=== PATIENT | male | born 1945 | race Caucasian/White ===

== ENCOUNTER 2017-02-09 11:35 | Inpatient (IN) | payer OTHER ==
--- NOTE | ~2017-02-09 | DS ---
Discharge Summary [facility] [address] [place]. [address] NAME: DAYNE CAMP : 49 STATUS : DIS IN PAT#: [id number] AGE: 71 ADM/REG DATE : 02/09/17 MR#: [id number] REPORT SERV DATE: 02/13/17 DICTATED BY: DANIELLE HOUSE DATE: 02/12/17 REPORT STATUS : Draft TRANSCRIBED BY: MODL DATE: 02/12/17 ADMISSION DATE: 02/09/2017 DISCHARGE DATE: 02/12/2017 DISCHARGE DIAGNOSES: 1. Acute on chronic systolic dysfunction. He was treated with IV Bumex, had a 9000 mL output. 2. Sleep apnea. The patient was noncompliant with CPAP at home. We tried to use our CPAP here and then he was able to use it whole night yesterday, and he is willing to try with his home CPAP. 3. Atrial fibrillation on chronic Pradaxa use. 4. Morbid obesity. BMI 40. 5. Acute kidney injury, chronic kidney disease, improving back to his normal status. 6. Diabetes mellitus uncontrolled, increasing his Lantus to 75 units twice a day from 62 units. HISTORY OF PRESENT ILLNESS: This is a 71-year-old male patient, who is morbidly obese with a multiple medical conditions including heart failure, and morbid obesity and came to the hospital with short of breath and dyspnea. Please see dictated H and P. HOSPITAL COURSE: He was admitted to hospital with heart failure, was treated with IV Bumex. He was already on high dose of oral Bumex and furosemide at home as instruction from Dr. Hilton. Even there with p.r.n. use of Bumex, he was not able to breathe very much, and he was in such a respiratory distress when he came into the hospital emergency room. After the IV Bumex was started, he put out about 9000 mL for last three days and he is improving. He is able to walk without any problem with 2 L of oxygen. His oxygenation is 98%. He has improved. While he was here, we tried to use our CPAP and he tolerated well and he wanted to continue to use his home CPAP at home. We encouraged to use the CPAP as much as he can strongly. He voiced understanding and also voiced understanding. I talked to Dr. Hilton about his medical condition and the current treatment plan and he agreed with that. DISCHARGE MEDICATION: 1. Continue aspirin 81 mg once a day, Lipitor 20 mg once at night, Bumex and furosemide 80 mg once in the morning time which was instruction from Dr. Hilton but I am adding his Bumex 2 mg at 2 o'clock p.m. 2. BuSpar 5 mg twice a day. 3. Atarax 10 mg as needed. 4. Coreg 6.25 mg twice a day. 5. Pradaxa 150 mg twice a day. 6. Neurontin 400 mg twice a day. 7. Lantus was increased to 75 unit twice a day. 8. Potassium 20 mEq once a day. 9. Zoloft 200 mg once a day. 10.Flomax 0.4 mg once a day. Discharge Summary [address] [place]. [address] NAME: DAYNE CAMP : 49 STATUS : DIS IN PAT#: [id number] AGE: 71 ADM/REG DATE : 02/09/17 MR#: [id number] REPORT SERV DATE: 02/13/17 DICTATED BY: DANIELLE HOUSE DATE: 02/12/17 REPORT STATUS : Draft TRANSCRIBED BY: DARLYN DATE: 02/12/17 11.Cozaar was not continued. 12.Ambien 5 or 10 mg once at bedtime as needed. 13.Zantac 150 mg twice a day. 14.Glucophage 1000 mg twice a day. 15.ProAir as needed. 16.Flonase twice a day. 17.Ativan 0.5 twice a day as needed. TIME SPENT: More than 30 minutes in discharge summary and coordination. DISCHARGE DISPOSITION: The patient is discharged to home with home health being resumed, and I highly recommend to use a CPAP machine at home. EKL/MODL Danielle House M.D. / [id number] CC: Deborah Kwong
--- NOTE | ~2017-02-09 | HP ---
History And Physical [facility] [id number] [place]. [address] NAME: DAYNE CAMP : 49 STATUS : ADM IN PAT#: [id number] AGE: 71 ADM/REG DATE : 02/09/17 MR#: [id number] REPORT SERV DATE: 02/09/17 DICTATED BY: DANIELLE HOUSE DATE: 02/09/17 REPORT STATUS : Draft TRANSCRIBED BY: MODL DATE: 02/09/17 DATE OF ADMISSION: 02/09/2017 CHIEF COMPLAINT: Short of breath. HISTORY OF PRESENT ILLNESS: This is a 71-year-old super obese male patient and also has sleep apnea, does not use a CPAP machine, having trouble breathing about worsening a few weeks, came to the hospital because last night he was feeling about to dye. He has all the time some sort of short of breath and he has been treated for congestive heart failure for longer time with Dr. Chauncey Hilton as an outpatient with p.r.n. diuretic use. However, he has been suffering worsening short of breath for the last three to four weeks and has gotten worse for the last few days. Meanwhile, he was followed by the [facility] Dr. Patel and then seen by Dr. Negrete for the pulmonary status and had a pulmonary function test done as an outpatient. He was told that he does not have any obstructive disease, but he does have a decreased TACO which represents some cardiac problem if there is, and also he does have sleep apnea and had it tested twice, but he is not able to use the BiPAP at home, so he is not using it. Dr. Hilton has been increasing diuretics over years and then using the instruction that he can use the extra furosemide on top of his a Bumex and Lasix combination daily dosing, but still his symptoms are not well controlled. Therefore, the patient was given the oxygen 2 weeks ago by primary care physician, and it helped somewhat, but last night he suffered from extreme short of breath and then decided to come to the hospital today. He has no fever, no chills, no cough, and he does not use any walking aids, but he is getting little weaker, so the has to be give him bath for the first time last night. He is compliant with his home medications. He was gained weight, but they believe it is water weight. There is no leg swelling. REVIEW OF SYSTEMS: All systems are reviewed and are negative. PAST MEDICAL HISTORY: 1. Congestive heart failure with systolic dysfunction. Ejection fraction was 40% with very mild nonflow obstructing coronary artery disease. 2. Atrial fibrillation, chronic. 3. Taking chronic Pradaxa. 4. Sleep apnea. The patient is not compliant with BiPAP. 5. Diabetes. PAST SURGICAL HISTORY: 1. UPPP. History And Physical [address] [address] NAME: DAYNE CAMP : 49 STATUS : ADM IN PAT#: [id number] AGE: 71 ADM/REG DATE : 02/09/17 MR#: [id number] REPORT SERV DATE: 02/09/17 DICTATED BY: DANIELLE HOUSE DATE: 02/09/17 REPORT STATUS : Draft TRANSCRIBED BY: DARLYN DATE: 02/09/17 2. Breast and nodular surgery. 3. Back surgery. 4. Thumb surgery two weeks ago. SOCIAL HISTORY: Quit smoking 30 something years ago. Denies any drinking problem. Used to work at [employer]. FAMILY HISTORY: Noncontributory. ALLERGIES: PNEUMOCOCCAL VACCINATION. MEDICATIONS: 1. Albuterol as needed. 2. Aspirin 81 mg once a day. 3. Lipitor 20 mg once at nighttime. 4. Bumex 2 mg in the morning time. 5. Lasix 80 mg in the morning time together with the potassium and Bumex. 6. BuSpar 5 mg twice a day. 7. Coreg 6.25 mg twice a day. 8. Pradaxa 150 mg twice a day. 9. Flonase twice a day as needed. 10.Lasix 80 mg again with the Bumex and he can use another Lasix 80 mg at nighttime if he gains 5 pounds of the weight overnight. 11.Neurontin 400 twice a day. 12.[place] 10 as needed. 13.Atarax 10 mg in the morning time and 10 mg at bedtime as needed. 14.Lantus 62 units twice a day. 15.Ativan 0.5 mg twice a day. 16.Cozaar 12.5 mg once a day. 17.Glucophage 1000 mg twice a day. 18.Potassium chloride 20 mEq once a day. 19.Zantac 150 mg twice a day. 20.Zoloft 200 mg once a day. 21.Flomax 0.4 mg once at nighttime. 22.Ambien 5 or 10 mg as needed at nighttime. PHYSICAL EXAMINATION: VITAL SIGNS: Blood pressure is 139/85, pulse is 113 and irregular, temperature is 98.6, respiratory rate 20, and saturation is 98% on 4 L of oxygen nasal cannula. GENERAL APPEARANCE: He is very obese. He is alert, awake, not in acute distress. There is no confusion at all. HEENT: Pupils are equal, round, and reactive to the light. EOM are intact. Conjunctivae not anemic. Oral mucosa has moisture. NECK: Has very short status of neck. There are no nodes palpable. CHEST: Clear to auscultation, but has a very limited breathing sound and both bases have crackles. CARDIOVASCULAR: There are no murmurs, rubs, or gallops. He has a regular rhythm and rate. History And Physical [address] [address] NAME: DAYNE CAMP : 49 STATUS : ADM IN [facility]#: [id number] AGE: 71 ADM/REG DATE : 02/09/17 MR#: [id number] REPORT SERV DATE: 02/09/17 DICTATED BY: DANIELLE HOUSE DATE: 02/09/17 REPORT STATUS : Draft TRANSCRIBED BY: DARLYN DATE: 02/09/17 ABDOMEN: Bowel sounds present. Soft. There is no rebound tenderness. I was not able to appreciate a shifting dullness. EXTREMITIES: There is no pitting edema. Pulses are intact. LABORATORY DATA: Sodium 137, potassium 5.1, chloride 96, BUN 14, creatinine 1.23. WBC 9.4, hemoglobin 13.3, hematocrit 41.4, platelets 229. BNP 303.6. Electrocardiogram was showing atrial fibrillation. CT of the chest which was obtained 10 days ago showed pleural effusion with vascular congestion. Chest x-ray showed vascular congestion. ASSESSMENT AND PLAN: 1. Acute on chronic heart failure. 2. Probably obesity hypoventilation and sleep apnea, noncompliant with BiPAP. 3. Chronic atrial fibrillation, on chronic Pradaxa. 4. Morbid obesity. 5. Acute kidney injury. PLAN: The patient will be admitted to hospital with continues oxygen supplement and I will put him on the Bumex drip and strict I's and O's and watching his kidney function. We will try to use the BiPAP from our facility. The patient is also not compliant with the diet, so we will put him on a 2 g sodium diet. The current plan of care and prognosis were discussed with the patient and family, and granddaughter and son-in-law, they all voiced understanding. EKL/MODL Danielle House M.D. / [id number] CC: Deborah Kwong DONALD A.
[~2017-02-09 11:35] MED LIST: ACET500CAP PO; AMB10 PO; AMB5 PO; ASAB PO; AT10; AT10 PO; BUSPAR5 PO; BUSPIRONE PO; CIPROFLOXACIN PO; COREG12 PO; COZ50 PO; ELIQUIS 5 MG TAB5 MG PO; GLUCOPHAGE1000 MG PO; GLUCOTRO10 PO; GLUCPH PO; HYDROCHLOROT25 MG PO; HYTRIN10 MG PO; L40 PO; LIPITOR40 PO; LOP50 PO; MUCINEX DM PO; NEUR800 PO; NORCO1 TAB PO; VOLTAREN1 % TOP; ZANTAC 150 PO; ZOL100 PO
[2017-02-09 12:04] LABS: BASOPHILS 0.3 %; BASOPHILS ABSOLUTE 0.03 10/3/uL (0.0-0.16); EOSINOPHILS 4.6 %; EOSINOPHILS ABSOLUTE 0.43 10/3/uL (0.0-0.53); HEMOGLOBIN 13.3 g/dL (13.6-17.8); IMMATURE GRANULOCYTES 0.2 %; IMMATURE GRANULOCYTES ABSOLUTE 0.02 10/3/uL (0.0-0.11); LYMPHOCYTES 13.2 %; LYMPHOCYTES ABSOLUTE 1.24 10/3/uL (0.67-4.30); MEAN CORPUSCULAR HEMOGLOB 29.7 pg (26.0-34.0); MEAN PLATELET VOLUME 10.3 fL (9.2-13.0); MONOCYTES 5.4 %; MONOCYTES ABSOLUTE 0.51 10/3/uL (0.21-1.20); NEUTROPHILS 76.3 %; NEUTROPHILS ABSOLUTE 7.17 10/3/uL (2.02-8.40); PLATELET COUNT 229 10/3/uL (150-400); RBC DISTRIBUTION WIDTH 13.8 % (12.0-16.0); RED CELL COUNT 4.48 10/6/uL (4.7-6.1)
[2017-02-09 12:08] LABS: ER CBC TAT 0 Hrs 00 Mins; HEMATOCRIT 41.4 % (40.0-51.0); MANUAL DIFF NO %; MEAN CORPUS HGB CONC 32.1 g/dL (32.0-36.0); MEAN CORPUSCULAR VOLUME 92.4 fL (80-100); WHITE BLOOD CELLS 9.4 10/3/uL (4.5-10.5)
[2017-02-09 12:14] LABS: INTERNATIONAL NORMAL RATI 1.3 UNITS (-); PROTIME (NOT ORD) 15.8 SEC (12.0-14.5)
[2017-02-09 12:29] LABS: BUN (BLOOD UREA NITROGEN) 14 MG/DL (6-23); CALCIUM, SERUM 8.8 MG/DL (8.5-10.4); CHEST PAIN PROFILE TAT 0 Hrs 21 Mins; CHLORIDE, SERUM 96 MMOL/L (96-112); CO2 (CARBON DIOXIDE) 31 MMOL/L (24-34); CREATININE 1.23 MG/DL (0.70-1.30); GFR AFRICAN AMERICAN 69 ML/MIN (>=60); GFR NON AFRICAN AMERICAN 60 ML/MIN (>=60); GLUCOSE, SERUM 232 MG/DL (60-99); POTASSIUM, SERUM 5.1 MMOL/L (3.5-5.3); SODIUM, SERUM 137 MMOL/L (135-148); TROPONIN I <0.02 NG/ML (<0.05)
[2017-02-09] MEDS ORDERED: KLOR-CON M2020 MEQ PO (17:28)
[2017-02-09] MEDS ORDERED: COREG6 PO (17:28)
[2017-02-09] MEDS ORDERED: NEUR400 PO (17:29)
[2017-02-09] MEDS ORDERED: ZOL100 PO (17:29)
[2017-02-09] MEDS ORDERED: LIPITOR20 PO (17:30)
[2017-02-09] MEDS ORDERED: COZ25 PO (17:30)
[2017-02-09] MEDS ORDERED: BUSPAR5 PO (17:30)
[2017-02-09] MEDS ORDERED: AMB10 PO (17:31)
[2017-02-09] MEDS ORDERED: NORCO1 TAB PO (17:31)
[2017-02-09] MEDS ORDERED: AT10 PO ×2 (17:31)
[2017-02-09] MEDS ORDERED: BUM2 PO (17:32)
[2017-02-09] MEDS ORDERED: PRADAXA150 MG PO (17:32)
[2017-02-09] MEDS ORDERED: ZANTAC 150 PO (17:32)
[2017-02-09] MEDS ORDERED: HALF81 PO (17:32)
[2017-02-09] MEDS ORDERED: DEMA100 PO (17:34)
[2017-02-09] MEDS ORDERED: FLOMAX4 PO (17:34)
[2017-02-09] MEDS ORDERED: LANTUS SC (17:34)
[2017-02-09] MEDS ORDERED: PROAIR HFA INH (17:35)
[2017-02-09] MEDS ORDERED: GLUCOPHAGE1000 MG PO (17:35)
[2017-02-09] MEDS ORDERED: ATV.5 PO (17:36)
[2017-02-09] MEDS ORDERED: FLONASE NAS (17:36)
[2017-02-10 04:48] LABS: BASOPHILS 0.7 %; BASOPHILS ABSOLUTE 0.06 10/3/uL (0.0-0.16); EOSINOPHILS 5.6 %; HEMOGLOBIN 12.9 g/dL (13.6-17.8); IMMATURE GRANULOCYTES 0.3 %; IMMATURE GRANULOCYTES ABSOLUTE 0.03 10/3/uL (0.0-0.11); LYMPHOCYTES ABSOLUTE 1.15 10/3/uL (0.67-4.30); MANUAL DIFF NO %; MEAN CORPUS HGB CONC 32.3 g/dL (32.0-36.0); MEAN CORPUSCULAR HEMOGLOB 29.5 pg (26.0-34.0); MEAN CORPUSCULAR VOLUME 91.3 fL (80-100); MEAN PLATELET VOLUME 10.5 fL (9.2-13.0); MONOCYTES 6.5 %; MONOCYTES ABSOLUTE 0.58 10/3/uL (0.21-1.20); NEUTROPHILS 73.9 %; NEUTROPHILS ABSOLUTE 6.56 10/3/uL (2.02-8.40); PLATELET COUNT 239 10/3/uL (150-400); RBC DISTRIBUTION WIDTH 13.8 % (12.0-16.0); RED CELL COUNT 4.38 10/6/uL (4.7-6.1); WHITE BLOOD CELLS 8.9 10/3/uL (4.5-10.5)
[2017-02-10 04:54] LABS: BUN (BLOOD UREA NITROGEN) 17 MG/DL (6-23); CALCIUM, SERUM 8.4 MG/DL (8.5-10.4); CHLORIDE, SERUM 96 MMOL/L (96-112); CO2 (CARBON DIOXIDE) 35 MMOL/L (24-34); CREATININE 1.19 MG/DL (0.70-1.30); GFR AFRICAN AMERICAN 72 ML/MIN (>=60); GFR NON AFRICAN AMERICAN 62 ML/MIN (>=60); GLUCOSE, SERUM 201 MG/DL (60-99); POTASSIUM, SERUM 3.8 MMOL/L (3.5-5.3); SODIUM, SERUM 141 MMOL/L (135-148)
[2017-02-11 05:30] LABS: BASOPHILS 0.4 %; BASOPHILS ABSOLUTE 0.03 10/3/uL (0.0-0.16); EOSINOPHILS 7.3 %; EOSINOPHILS ABSOLUTE 0.56 10/3/uL (0.0-0.53); HEMATOCRIT 40.3 % (40.0-51.0); HEMOGLOBIN 12.7 g/dL (13.6-17.8); IMMATURE GRANULOCYTES 0.3 %; IMMATURE GRANULOCYTES ABSOLUTE 0.02 10/3/uL (0.0-0.11); LYMPHOCYTES 15.9 %; LYMPHOCYTES ABSOLUTE 1.22 10/3/uL (0.67-4.30); MEAN CORPUS HGB CONC 31.5 g/dL (32.0-36.0); MEAN CORPUSCULAR HEMOGLOB 28.7 pg (26.0-34.0); MEAN CORPUSCULAR VOLUME 91.2 fL (80-100); MEAN PLATELET VOLUME 10.6 fL (9.2-13.0); MONOCYTES 6.4 %; MONOCYTES ABSOLUTE 0.49 10/3/uL (0.21-1.20); NEUTROPHILS 69.7 %; NEUTROPHILS ABSOLUTE 5.33 10/3/uL (2.02-8.40); PLATELET COUNT 211 10/3/uL (150-400); RBC DISTRIBUTION WIDTH 13.9 % (12.0-16.0); RED CELL COUNT 4.42 10/6/uL (4.7-6.1); WHITE BLOOD CELLS 7.7 10/3/uL (4.5-10.5)
[2017-02-11 05:36] LABS: MANUAL DIFF NO %
[2017-02-11 05:39] LABS: BUN (BLOOD UREA NITROGEN) 18 MG/DL (6-23); CALCIUM, SERUM 8.8 MG/DL (8.5-10.4); CHLORIDE, SERUM 96 MMOL/L (96-112); CO2 (CARBON DIOXIDE) 37 MMOL/L (24-34); CREATININE 1.14 MG/DL (0.70-1.30); GFR AFRICAN AMERICAN 76 ML/MIN (>=60); GFR NON AFRICAN AMERICAN 65 ML/MIN (>=60); GLUCOSE, SERUM 187 MG/DL (60-99); POTASSIUM, SERUM 3.6 MMOL/L (3.5-5.3); SODIUM, SERUM 142 MMOL/L (135-148)
[2017-02-12] MEDS ORDERED: LANTUS SC (17:11)
[2017-02-12] MEDS ORDERED: BUM1 PO (17:14)
[2017-08-03] MEDS ORDERED: SPIRIVA INH (18:15)
[2017-08-03] MEDS ORDERED: SYMBICORT 160/41 INH INH (18:16)
[2017-08-15] MEDS ORDERED: LEVEMIR SC (17:40)
[2017-08-15] MEDS ORDERED: NOVOLOG SC ×2 (17:41)
[2017-08-15] MEDS ORDERED: COZ25 PO (17:42)
== END 2017-02-12 22:36 | disposition home health service (06) | DRG 292 ==
LOC: ER 11:35 → 7NO 17:56
PROVIDERS: Emergency Medicine; Internal Medicine
DX: I50.23 Acute on chronic systolic (congestive) heart failure (principal); N17.9 Acute kidney failure, unspecified; E11.22 Type 2 diabetes mellitus with diabetic chronic kidney disease; I48.2 Chronic atrial fibrillation; E66.2 Morbid (severe) obesity with alveolar hypoventilation; Z68.41 Body mass index [BMI] 40.0-44.9, adult; N18.2 Chronic kidney disease, stage 2 (mild); Z79.82 Long term (current) use of aspirin; Z87.891 Personal history of nicotine dependence; Z79.4 Long term (current) use of insulin; Z79.01 Long term (current) use of anticoagulants
CPT/HCPCS: 71010; 71020; 80048; 82962; 83735; 83880; 84484; 85025; 85610; 85730; 93005; 94660; 96374; 99285; A9270-GY